=== PATIENT | male | born 1980 | race Caucasian/White ===

== ENCOUNTER 2024-09-06 11:56 | Emergency (ER) | payer BC, SELFPAY ==
[2024-09-06 12:11] VITALS: BP 124/85
[2024-09-06 12:31] LABS: % Basophils 0.1 % (0-2); % Immature Granulocytes 0.3 % (0-0.5); % Lymphocytes 6.2 % (20.5-51.1); % Neutrophils 85.4 % (42.2-75.2); Absolute Lymphocytes 0.5 10^3/uL (1.2-3.4); Absolute Monocytes 0.7 10^3/uL (0.1-0.6); Absolute Neutrophils 7.4 10^3/uL (1.4-6.5); Hematocrit 41.9 % (39.0-52.0); Hemoglobin 13.6 g/dL (13.0-18.0); Mean Corp Hgb Conc. 32.5 g/dL (33.0-37.0); Mean Corpuscular Hgb 22.2 pg (27.0-31.0); Mean Corpuscular Volume 68.5 fL (80.0-94.0); Mean Platelet Volume 10.2 fL (7.4-10.4); Nucleated Red Blood Cells % 0 % (-); Platelet Count 215 10^3/uL (130-400); Red Blood Cell Count 6.12 10^6/uL (4.70-6.10); Red Cell Dist. Width 15.5 % (11.5-14.5); White Blood Cell Count 8.6 10^3/uL (4.8-10.8)
[2024-09-06 12:54] LABS: ALT (SGPT) 59 U/L (0-50); AST (SGOT) 37 U/L (17-59); Albumin 4.5 g/dl (3.5-5.0); Alkaline Phosphatase 113 U/L (38-126); Blood Urea Nitrogen 15 mg/dl (9-20); Calcium 9.2 mg/dl (8.4-10.2); Carbon Dioxide 26 mmol/L (22-30); Chloride 103 mmol/L (98-107); Glucose 122 mg/dl (70-99); Potassium 4.4 mmol/L (3.5-5.1); Sodium 138 mmol/L (135-145); Total Bilirubin 0.4 mg/dl (0.2-1.3); Total Protein 7.2 g/dl (6.3-8.2); eGFR > 60.00
[2024-09-06 13:20] LABS: Lipase 33 U/L (23-300)
--- NOTE | 2024-09-06 13:24 | ED.GENMED ---
Addendum entered and electronically signed by Jonathan Barriga PA-C 09/09/24 07:16:
Stool culture shows Salmonella species. Spoke with patient's over the telephone. He still having diarrhea on an hourly basis. He is somewhat improved but still feeling unwell. He has met sensitivity. Will prescribe Zithromax. This was
sent to his pharmacy.
Original Note:
History of Present Illness
General
Chief Complaint: Abdominal Pain
Source: patient
Time Seen by Provider: 09/06/24 12:51
History of Present Illness
History of Present Illness:
44yoM with a history of GERD and IBS presenting with his for evaluation of abdominal pain and diarrhea. Symptoms initially began 2 days ago. He reports about 10 watery bowel movements daily. He is also having intermittent lower abdominal
pain. He is having chills and body aches but denies any fever. He believes he has a stomach bug but denies any suspicious food intake, recent travel, sick contacts, or recent antibiotics. Of note, patient did have a left arm tattoo prior to his
symptoms starting. No hematochezia. No previous abdominal surgeries. He had a colonoscopy 1 year ago which was reportedly normal.
Past History
Past History
ED Past Medical History: GERD
ED Past Surgical History: None
Patient has exhibited threatening behavior?: No
Phy Exam
General Physical Exam
General Presentation: well appearing and no apparent distress
General age: appears stated age
General Skin: warm and dry
General Habitus: normal
General Mental: alert
ENT Exam
ENT Exam: normocephalic
Cardiovascular Exam
Cardiovascular Exam: regular rate/rhythm
Pulmonary Exam
Pulmonary Exam: lungs clear, no respiratory distress, no crackles and no wheezing
Gastrointestinal Exam
Gastrointestinal Exam: soft, non distended and other (Mild tenderness to lower abdomen. Abdomen soft, non-distended. No rebound or guarding.)
Blue Coma Scale
Eye Opening: Spontaneous
Verbal Response: Oriented
Motor Response: Obeys Commands
GCS Total Score: 15
Skin Exam
Skin Exam: normal color and warm/dry
Psychiatric Exam
Psychiatric Exam: normal mood/affect
Course
Orders/Labs/Results
Orders:
Orders
09/06/24 12:22
Complete Blood Count/With Diff Urgent
Comprehensive Metabolic Panel Urgent
Lipase Urgent
Comment: ADD
09/06/24 12:55
Add On- LAB Urgent
Comments:: sst in lab
Tests Added?: lipase
09/06/24 13:24
CT Abd/pelvis W Iv Cont Urgent
Comment:
Reason For Exam: Lower abd pain, diarrhea
0.9% Sodium Chloride 1000 ml [Nss] 1,000 ml IV BOLUS
09/06/24 13:29
Stool Culture Urgent
SONDRA Source: Feces/Stool
Specimen Description:
Date Specimen was Collected: 09/06/24
Time Specimen was Collected: 13:25
09/06/24 13:49
Ketorolac [Toradol] 15 mg IV NOW STA
09/06/24 15:26
Dicyclomine [Bentyl] 20 mg PO NOW STA
Abnormal Lab Results
09/06/24
12:22
RBC 6.12 H 10^6/uL
(4.70-6.10)
MCV 68.5 L fL
(80.0-94.0)
MCH 22.2 L pg
(27.0-31.0)
MCHC 32.5 L g/dL
(33.0-37.0)
RDW 15.5 H %
(11.5-14.5)
Absolute Neuts (auto) 7.4 H 10^3/uL
(1.4-6.5)
Absolute Lymphs (auto) 0.5 L 10^3/uL
(1.2-3.4)
Absolute Monos (auto) 0.7 H 10^3/uL
(0.1-0.6)
Neutrophils % 85.4 H %
(42.2-75.2)
Lymphocytes % 6.2 L %
(20.5-51.1)
Glucose 122 H mg/dl
(70-99)
ALT 59 H U/L
(0-50)
09/06/24 12:22
09/06/24 12:22
Vital Signs
Initial and Last Documented VS:
Initial Vital Signs
Temp Pulse Resp BP Pulse Ox
99.2 F 109 16 124/85 98
09/06/24 12:11 09/06/24 12:11 09/06/24 12:11 09/06/24 12:11 09/06/24 12:11
Last Documented Vital Signs
Temp Pulse Resp BP Pulse Ox
99.5 F 94 16 126/82 98
09/06/24 13:45 09/06/24 15:47 09/06/24 13:45 09/06/24 15:47 09/06/24 15:47
MDM/Problems Addressed
Differential Diagnosis Includes:
44yoM here with diarrhea, lower abd pain, body aches x 2 days. No fevers or hematochezia. No suspicious food intake, travel, sick contacts, or recent abx. He is afebrile and hemodynamically stable. He is well appearing in no distress. No signs of
peritonitis on abdominal exam. Differential diagnosis includes but is not limited to: Diverticulitis, colitis, gastroenteritis, dehydration
Initial ED plan: Check abdominal labs, stool culture, and CT abdomen. IV fluid bolus.
*Critical Care Note
Total Time (30-74mins, 75-104mins- exclusive of procedures): Not Applicable
Update Note
Update Note:
Labs reveal a mildly elevated ALT of 59. Remainder of LFTs normal. White count, electrolytes, renal function normal. CT abdomen shows mild pancolitis. Patient had 1 episode of diarrhea during ED stay. Vitals remain stable. He is stable for
discharge. Supportive care discussed and prescription given for Bentyl. He has an appt with his line construction engineer in 2 days. ED return precautions discussed. He was discharged in stable condition.
ED Attending Note
-
Portions of this chart may have been created with voice recognition software.� Occasional wrong word or��sound alike� substitutions may have occurred due to the inherent limitations of voice recognition software.
Discharge Plan
Departure
Patient Disposition: Home (Routine Discharge)
Date of Disposition: 09/06/24
Time of Disposition: 15:26
Patient with high blood pressure during this ER visit?: No
Discharge Problem:
Pancolitis, Acute diarrhea
Instructions: Colitis (DC), Acute Diarrhea
Prescriptions:
New
dicyclomine 20 mg tablet
20 mg PO QID PRN (Reason: abdominal cramping) Qty: 20 0RF
No Action
naproxen [Naprosyn] 500 mg tablet
500 mg PO BID PRN (Reason: pain) Qty: 14 0RF
amoxicillin-pot clavulanate 875-125 mg tablet
1 tab PO Q12H Qty: 19 0RF
Referrals:
Tung Wilson MD [Family Provider] -
Activity Restrictions/Additional Instructions:
Drink plenty of fluids and eat a bland diet (bananas, rice, applesauce, toast). Take Bentyl as needed for abdominal cramping.
Please follow-up with your family doctor and line construction engineer. Return to the ER with any worsening symptoms or fevers.
Your CT results: Diffuse mild to moderate thickening of the colon with mild pericolonic stranding compatible with a pancolitis, likely infectious versus inflammatory in nature.
Interventions
Interventions:
*Risk Screen - Suicide Last Done: 09/06/24 12:11
*General Assessment Last Done: 09/06/24 13:17
*Neglect/Abuse Screening Last Done: 09/06/24 12:11
ED- Fall Risk Assessment Last Done: 09/06/24 13:19
*Nursing Disposition Last Done: 09/06/24 15:47
SP-Tujnux-Xtyqbxagmr Assessment Last Done: 09/06/24 13:21
Discharge Date and Time
Discharge Date/Time: 09/06/24 15:49
Print Language: SLOVENIAN
[2024-09-06] MEDS: NSS 1000 IV (13:42)
[2024-09-06 13:45] VITALS: BP 121/84
[2024-09-06] MEDS: TORADOL 15 MG IV (14:00)
[2024-09-06] MEDS: BENTYL 20 MG PO (15:35)
[2024-09-06 15:47] VITALS: BP 126/82
== END 2024-09-06 15:49 | disposition home or self-care (01) ==
LOC: EMR 11:56
PROVIDERS: Emergency Medicine; EMERGENCY PHYSICIAN Emergency Medicine; FAMILY PHYSICIAN Internal Medicine
DX: K52.9 Noninfective gastroenteritis and colitis, unspecified (principal); K21.9 Gastro-esophageal reflux disease without esophagitis; K58.0 Irritable bowel syndrome with diarrhea
CPT/HCPCS: 99284; 96374; 74177; 80053; 83690; 85025; 87045; 87046; 87077; 87184; 87186; 87427; Q9967